=== PATIENT | male | born 1970 | race Caucasian/White ===

== ENCOUNTER 2018-06-11 12:12 | Emergency (ER) | payer OTHER ==
[2018-06-11] MEDS ORDERED: Sodium Chloride 0.9% 1,000 ML IV ONE (12:59)
--- NOTE | 2018-06-11 13:00 | EDM.PDOC ---
ED HPI GENERAL MEDICAL PROBLEM - General Chief Complaint: Diabetic Complaint Stated Complaint: ISSUES WITH DIABETES Time Seen by Provider: 06/11/18 12:33 Source of Information: Reports: Patient, Family (), RN Notes Reviewed History Limitations: Reports: No Limitations - History of Present Illness INITIAL COMMENTS - FREE TEXT/NARRATIVE: The patient states that he has a [id number] type II diabetic. He states that he developed a sore throat and cough about 2 weeks ago, and he was therefore seen at the walk-in clinic this past 06/09/2018. The patient states that no tests were done, but that he was diagnosed with bronchitis, and prescribed doxycycline. His sore throat and cough have since resolved. The patient states that his blood glucoses are ordinarily between 90 and 125, but that he ran out of his test strips months ago, and hasn't checked his blood sugar since. He states that he is ordinarily on metformin 1000 mg BID, but that as a result of his cough, he decreased his metformin to 500 mg once a day, then down to 250 mg once a day. He states that he developed polydipsia, polyuria, a dry mouth, lightheadedness, and confusion about 2-3 weeks ago, and that his symptoms have gotten progressively worse. No recent nausea, vomiting, constipation, diarrhea, urinary symptoms, fever, chest pain, palpitations, abdominal or flank pain. 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 The patient's PCP is Dr. Rolando Álvarez, in [place]. - Related Data Allergies Allergy/AdvReac Type Severity Reaction Status Date / Time No Known Allergies Allergy Verified 06/11/18 12:41 Home Meds: Home Meds Rosuvastatin [Crestor] 10 mg PO DAILY 06/11/18 [History] Sertraline [Zoloft] 125 mg PO DAILY 06/11/18 [History] metFORMIN HCl [Metformin HCl] 1,000 mg PO DAILY 06/11/18 [History] Past Medical History Cardiovascular History: Reports: High Cholesterol Psychiatric History: Reports: Anxiety, Depression Endocrine/Metabolic History: Reports: Diabetes, Type II, Obesity/BMI 30+ - Past Surgical History HEENT Surgical History: Reports: Adenoidectomy, Oral Surgery (upper wisdom teeth extraction), Tonsillectomy Social & Family History - Tobacco Use Smoking Status *Q: Never Smoker - Caffeine Use Caffeine Use: Reports: None - Alcohol Use Alcohol Use History: No - Recreational Drug Use Recreational Drug Use: No - Living Situation & Occupation Living situation: Reports: , with Spouse Occupation: Employed ([employer]) ED ROS GENERAL - Review of Systems Review Of Systems: ROS reveals no pertinent complaints other than HPI. ED EXAM GENERAL NO PERIP PULSE - Physical Exam Exam: See Below Exam Limited By: No Limitations General Appearance: Alert, WD/WN, No Apparent Distress Eye Exam: Bilateral Eye: EOMI, Normal Inspection Ears: Normal External Exam, Hearing Grossly Normal Nose: Normal Inspection Throat/Mouth: Normal Inspection, Normal Lips, Normal Voice, No Airway Compromise Head: Atraumatic, Normocephalic Neck: Normal Inspection, Full Range of Motion Respiratory/Chest: No Respiratory Distress, Lungs Clear, Normal Breath Sounds, No Accessory Muscle Use Cardiovascular: Normal Peripheral Pulses, No Edema, No Gallop, No JVD, No Murmur , No Rub, Tachycardia (regular) GI/Abdominal: Normal Bowel Sounds, Soft, Non-Tender, No Organomegaly, No Distention, No Abnormal Bruit, No Mass, Other (Obese) (Male) Exam: Deferred Rectal (Males) Exam: Deferred Back Exam: Normal Inspection, Full Range of Motion, NT Extremities: Normal Inspection, Normal Range of Motion, No Pedal Edema, Normal Capillary Refill Neurological: Alert, Oriented, Normal Cognition, No Motor/Sensory Deficits Psychiatric: Normal Affect Skin Exam: Warm, Dry, Intact, Normal Color, No Rash EKG INTERPRETATION EKG Date: 06/11/18 Time: 13:04 Rhythm: NSR (with several PVCs) Rate (Beats/Min): 95 [place]: Normal P-Wave: Enlarged (LAE likely) QRS: Normal ST-T: Normal QT: Normal Comparison: NA - No Prior EKG Course - Vital Signs Last Recorded V/S: Last Vital Signs Temp 37.1 C 06/11/18 12:39 Pulse 109 H 06/11/18 12:39 Resp 20 06/11/18 12:39 BP 133/89 06/11/18 12:39 Pulse Ox 98 06/11/18 12:39 Orthostatic Blood Pressure [ 109/77 Standing] Orthostatic Blood Pressure [ 120/94 Sitting] Orthostatic Blood Pressure [ 113/91 Supine] - Orders/Labs/Meds Orders: Active Orders 24 hr Category Date Time Status EKG Documentation Completion [RC] STAT Care 06/11/18 12:58 Active Orthostatic Vital Signs [RC] STAT Care 06/11/18 12:56 Active Insulin Regular, Human [HumuLIN R] 100 unit Med 06/11/18 14:00 Active Sodium Chloride 0.9% [Normal Saline] 99 ml IV TITRATE Lactated Ringers [Ringers, Lactated] 1,000 ml Med 06/11/18 14:43 Active IV .BOLUS Medication Orders Insulin Human Regular 100 unit (/ Sodium Chloride) 100 mls @ 10.88 mls/hr IV TITRATE TELMA; Protocol Last Admin: 06/11/18 14:15 Dose: 0.1 units/kg/hr, 10.88 mls/hr Lactated Ringer's (Ringers, Lactated) 1,000 mls @ 999 mls/hr IV .BOLUS ONE Stop: 06/11/18 15:43 Last Admin: 06/11/18 14:51 Dose: 999 mls/hr Labs: Laboratory Tests 06/11/18 06/11/18 06/11/18 Range/Units 12:45 12:47 13:00 WBC 10.47 H (4.23-9.07) K/mm3 RBC 6.18 H (4.63-6.08) M/mm3 Hgb 17.0 (13.7-17.5) gm/L Hct 47.9 (40.1-51.0) % MCV 77.5 L (79.0-92.2) fl MCH 27.5 (25.7-32.2) pg MCHC 35.5 (32.2-35.5) g/dl RDW Std Deviation 39.2 (35.1-43.9) fL Plt Count 379 H (163-337) K/mm3 MPV 10.2 (9.4-12.3) fl Neutrophils % (Manual) 64 H (40-60) % Band Neutrophils % 0 (0-10) % Lymphocytes % (Manual) 34 (20-40) % Atypical Lymphs % 0 % Monocytes % (Manual) 1 L (2-10) % Eosinophils % (Manual) 1 (0.8-7.0) % Basophils % (Manual) 0 L (0.2-1.2) Platelet Estimate Adequate Macrocytosis 2+ moderate RBC Morph Comment Not Reportable Sodium (136-145) mEq/L Potassium (3.5-5.1) mEq/L Chloride (98-107) mEq/L Carbon Dioxide (21-32) mEq/L Anion Gap (5-15) BUN (7-18) mg/dL Creatinine (0.7-1.3) mg/dL Est Cr Clr Drug Dosing mL/min Estimated GFR (MDRD) (>60) mL/min BUN/Creatinine Ratio (14-18) Glucose 770 H* (74-106) mg/dL Calcium (8.5-10.1) mg/dL Magnesium (1.8-2.4) mg/dl Total Bilirubin (0.2-1.0) mg/dL AST (15-37) U/L ALT (16-63) U/L Alkaline Phosphatase (46-116) U/L Total Protein (6.4-8.2) g/dl Albumin (3.4-5.0) g/dl Globulin gm/dL Albumin/Globulin Ratio (1-2) Urine Color Yellow (Yellow) Urine Appearance Clear (Clear) Urine pH 5.5 (5.0-8.0) Ur Specific [place]ushing 1.010 (1.005-1.030) Urine Protein Negative (Negative) Urine Glucose (UA) 3+ H (Negative) Urine Ketones 2+ H (Negative) Urine Occult Blood Negative (Negative) Urine Nitrite Negative (Negative) Urine Bilirubin Negative (Negative) Urine Urobilinogen 0.2 (0.2-1.0) Ur Leukocyte Esterase Negative (Negative) Urine RBC Not seen (0-5) /hpf Urine WBC Not seen (0-5) /hpf Ur Epithelial Cells Not seen (0-5) /hpf Urine Bacteria Rare (FEW) /hpf Urine Mucus Not seen (FEW) /hpf Ketones (0.0-0.3) mM 06/11/18 06/11/18 Range/Units 13:00 13:00 WBC (4.23-9.07) K/mm3 RBC (4.63-6.08) M/mm3 Hgb (13.7-17.5) gm/L Hct (40.1-51.0) % MCV (79.0-92.2) fl MCH (25.7-32.2) pg MCHC (32.2-35.5) g/dl RDW Std Deviation (35.1-43.9) fL Plt Count (163-337) K/mm3 MPV (9.4-12.3) fl Neutrophils % (Manual) (40-60) % Band Neutrophils % (0-10) % Lymphocytes % (Manual) (20-40) % Atypical Lymphs % % Monocytes % (Manual) (2-10) % Eosinophils % (Manual) (0.8-7.0) % Basophils % (Manual) (0.2-1.2) Platelet Estimate Macrocytosis RBC Morph Comment Sodium 132 L (136-145) mEq/L Potassium 4.9 (3.5-5.1) mEq/L Chloride 93 L (98-107) mEq/L Carbon Dioxide 20 L (21-32) mEq/L Anion Gap 23.9 H (5-15) BUN 25 H (7-18) mg/dL Creatinine 1.5 H (0.7-1.3) mg/dL Est Cr Clr Drug Dosing 60.88 mL/min Estimated GFR (MDRD) 50 (>60) mL/min BUN/Creatinine Ratio 16.7 (14-18) Glucose TNP (74-106) mg/dL Calcium 10.4 H (8.5-10.1) mg/dL Magnesium 2.3 (1.8-2.4) mg/dl Total Bilirubin 0.9 (0.2-1.0) mg/dL AST 16 (15-37) U/L ALT 38 (16-63) U/L Alkaline Phosphatase 118 H (46-116) U/L Total Protein 7.5 (6.4-8.2) g/dl Albumin 4.2 (3.4-5.0) g/dl Globulin 3.3 gm/dL Albumin/Globulin Ratio 1.3 (1-2) Urine Color (Yellow) Urine Appearance (Clear) Urine pH (5.0-8.0) Ur Specific [place] (1.005-1.030) Urine Protein (Negative) Urine Glucose (UA) (Negative) Urine Ketones (Negative) Urine Occult Blood (Negative) Urine Nitrite (Negative) Urine Bilirubin (Negative) Urine Urobilinogen (0.2-1.0) Ur Leukocyte Esterase (Negative) Urine RBC (0-5) /hpf Urine WBC (0-5) /hpf Ur Epithelial Cells (0-5) /hpf Urine Bacteria (FEW) /hpf Urine Mucus (FEW) /hpf Ketones 4.77 (0.0-0.3) mM Meds: Medications Generic Name Dose Route Start Last Admin Trade Name Freq PRN Reason Stop Dose Admin Insulin Human Regular 100 unit 100 mls @ 10.88 mls/hr 06/11/18 14:00 14:15 / Sodium Chloride IV 0.1 units/kg/hr TITRATE TELMA 10.88 mls/hr Administration Protocol 0.1 UNITS/KG/HR Lactated Ringer's 1,000 mls @ 999 mls/hr 06/11/18 14:43 06/11/18 14:51 Ringers, Lactated IV 06/11/18 15:43 999 mls/hr .BOLUS ONE Administration Discontinued Medications Generic Name Dose Route Start Last Admin Trade Name Freq PRN Reason Stop Dose Admin Sodium Chloride 1,000 mls @ 999 mls/hr 06/11/18 12:59 06/11/18 13:09 Normal Saline IV 06/11/18 13:59 999 mls/hr ONETIME ONE Administration - Re-Assessments/Exams Free Text/Narrative Re-Assessment/Exam: 06/11/18 13:11 The patient's blood glucose was >400 in triage, and he has all the hallmarks of intravascular depletion, including polydipsia, polyuria, and lightheadedness. I have ordered an IV fluid bolus and orthostatics, along with blood work, a urinalysis, a chest x-ray, and an ECG. I think it is highly likely that the patient will require hospitalization. 06/11/18 13:49 The patient's blood glucose has returned substantially elevated at 770. I have ordered an insulin drip. 06/11/18 14:02 2-view chest radiograph is read by Dr. Whaley as: 1. Nothing acute is seen on 2-view chest x-ray. 06/11/18 14:43 The patient's first liter of IV fluid has finished infusing. I will order a second liter of IV fluid. The patient is orthostatic. The patient's WBC count is elevated at 10.47, but with 0% bandemia. The remainder of his CBC is unremarkable. The patient's sodium is 132, but corrects to 141. His bicarbonate level is 20. His BUN/C are elevated at 25/1.5. His blood glucose, as above, is 770. The patient's Mg level is normal at 2.3. The patient's serum ketone level is modestly elevated at 4.77. The patient's urinalysis is remarkable for 3+ glucose and 2+ ketones. It is otherwise unremarkable. Test results discussed with the patient. I recommended hospitalization, however , we do not have an ICU bed available at this facility, therefore we will need to transfer the patient to [place]. The patient's PCP is at [facility], therefore he preferred transfer there. 06/11/18 15:10 Case discussed with Joann at [facility] at 14:50. Notified that Dr. Álvarez was premix operator concentrate, but he preferred that the patient be admitted to the Hospitalist. Case then discussed with Dr. Schaeffer, Hospitalist at [facility], at 15:07, who accepted the patient for admission to their facility. The patient will be transported by ambulance. Departure - Departure Time of Disposition: 15:10 Disposition: DC/Tfer to [facility] 02 Condition: Fair Clinical Impression: Type 2 diabetes mellitus with hyperosmolar nonketotic hyperglycemia, Acute renal failure (ARF) - Discharge Information *PRESCRIPTION DRUG MONITORING PROGRAM REVIEWED*: Not Applicable *COPY OF PRESCRIPTION DRUG MONITORING REPORT IN PATIENT TIKI: Not Applicable Referrals: Rolando Álvarez MD [Primary Care Provider] - - My Orders Last 24 Hours: My Active Orders 06/11/18 12:56 Orthostatic Vital Signs [RC] STAT 06/11/18 12:58 EKG Documentation Completion [RC] STAT 06/11/18 14:00 Insulin Regular, Human [HumuLIN R] 100 unit Sodium Chloride 0.9% [Normal Saline] 99 ml IV TITRATE 06/11/18 14:43 Lactated Ringers [Ringers, Lactated] 1,000 ml IV .BOLUS - Assessment/Plan Last 24 Hours: My Active Orders 06/11/18 12:56 Orthostatic Vital Signs [RC] STAT 06/11/18 12:58 EKG Documentation Completion [RC] STAT 06/11/18 14:00 Insulin Regular, Human [HumuLIN R] 100 unit Sodium Chloride 0.9% [Normal Saline] 99 ml IV TITRATE 06/11/18 14:43 Lactated Ringers [Ringers, Lactated] 1,000 ml IV .BOLUS
--- NOTE | 2018-06-11 13:47 | CR ---
Chest: Two views of the chest were obtained. Comparison: No prior chest x-ray. Heart size and mediastinum are normal. Lungs are clear. Bony structures are unremarkable. Impression: 1. Nothing acute is seen on two-view chest x-ray. Diagnostic code #1
[2018-06-11] MEDS ORDERED: Lactated Ringers 1,000 ML IV ONE (14:43)
== END 2018-06-11 16:32 ==
LOC: JD.ED 12:12
DX: E11.00 Type 2 diabetes mellitus with hyperosmolarity without nonketotic hyperglycemic-hyperosmolar coma (NKHHC) (principal); N17.9 Acute kidney failure, unspecified; E78.00 Pure hypercholesterolemia, unspecified; F41.9 Anxiety disorder, unspecified; F32.9 Major depressive disorder, single episode, unspecified; Z79.84 Long term (current) use of oral hypoglycemic drugs; Z79.899 Other long term (current) drug therapy
CPT/HCPCS: 36415; 71046; 80053; 81001; 82009; 82947; 83735; 85007; 85027; 93005; 96361; 96365; 96366; 99285; J7040; J7120; 93010